=== PATIENT | female | born 1950 | race Caucasian/White ===

== ENCOUNTER → 2020-04-20 12:19 | Outpatient (CLI) | payer MEDICARE, SELFPAY ==
--- NOTE | ~2020-04-20 | MR_ITS ---
EXAMINATION: MR lumbar spine wo con DATE: 04/20/2020 12:53 INDICATION: Right-sided sciatica. Low back pain. TECHNIQUE: Magnetic resonance imaging (MRI) of the lumbar spine was performed without intravenous con trast. Sequences included sagittal T2-weighted FSE, sagittal T2-weighted FS FSE, sagittal T1-weighted FSE, and axial T2-weighted FSE. COMPARISON: Chest CT 11/04/19, CT abdomen and pelvis 09/25/2015 FINDINGS: There are hypoplastic ribs at L1. There is 3 mm retrolisthesis of L2 on L3. Vertebral body heights are normal. There is moderately decreased disc height at L2-L3 and L5-S1. The distal spinal c ord signal intensity is normal. The conus medullaris is at L2. The following disc levels are specific ally discussed: L1-L2: The disc does not extend beyond the endplate margin. There is mild bilateral facet joint osteo arthritis. There is no neural foraminal stenosis. There is no central canal stenosis. L2-L3: The disc is bulging. There is mild bilateral facet joint osteoarthritis. There is moderate rig ht and mild left neural foraminal stenosis. There is mild central canal stenosis. L3-L4: The disc is bulging. There is mild bilateral facet joint osteoarthritis. There is mild bilater al neural foraminal stenosis. There is mild central canal stenosis. L4-L5: The disc is bulging and has an annular fissure. There is severe right and moderate left facet joint osteoarthritis. There is mild bilateral neural foraminal stenosis. There is mild central canal stenosis. L5-S1: The disc is bulging and has an annular fissure. There is severe bilateral facet joint osteoart hritis. There is mild right and moderate left neural foraminal stenosis. There is mild central canal stenosis. IMPRESSION: 1. Moderate lumbar spondylosis. Reviewed, dictated and finalized at location A.
== END ==
PROVIDERS: PCP Internal Medicine; Visit Provider Orthopaedic Surgery
DX: M54.41 Lumbago with sciatica, right side (principal); M47.816 Spondylosis without myelopathy or radiculopathy, lumbar region
CPT/HCPCS: 72148

== ENCOUNTER → 2020-05-20 13:11 | Outpatient (CLI) | payer MEDICARE, SELFPAY ==
--- NOTE | ~2020-05-20 | MM_ITS ---
EXAMINATION: MM screening [facility] BI w kaela HISTORY: Screening TECHNIQUE: Craniocaudal and mediolateral oblique 3-D tomosynthesis images were obtained and synthetic 2-D images were generated. CAD analysis was submitted and interpreted. COMPARISON: Comparison to multiple prior studies sequentially, with oldest reviewed study dated 01/2014. BREAST PARENCHYMAL COMPOSITION: There are scattered areas of fibroglandular density. FINDINGS: There is no evidence of suspicious mass, calcification, or architectural distortion to sugg est malignancy in either breast. There has been no suspicious interval change. IMPRESSION: 1. No mammographic evidence of malignancy. 2. Recommend routine screening mammography in one year. BI-RADS Category 1: Negative Reviewed, dictated and finalized at location D.
--- NOTE | ~2020-05-20 | DEXA_ITS ---
Bone Density Report Name: Gonsalo Seo Age: 69 Sex: Female Ethnicity: White Date of : 1950 Indication: postmenopausal; screening for osteoporosis; hysterectomy; Referring Provider: Cali, Rex Adams Study: Bone densitometry was performed. Exam Date: May 20, 2020 Accession number: [id number] Bone Density: Region BMD T-score Z-score Classification AP Spine (L1-L4) 1.104 0.5 2.5 Normal Femoral Neck (Left) 0.713 -1.2 0.4 Osteopenia Total Hip (Left) 0.930 -0.1 1.3 Normal Femoral Neck (Right) 0.699 -1.4 0.3 Osteopenia Total Hip (Right) 0.920 -0.2 1.2 Normal Total Hip Mean 0.925 -0.2 1.3 Normal World Health Organization criteria for BMD impression classify patients as: Normal (T-score at or above -1.0), Osteopenia (T-score between -1.0 and -2.5), or Osteoporosis (T-score at or below -2.5). 10-year Fracture Risk(1): Major Osteoporotic Fracture 11% Hip Fracture 1.4% Reported Risk Factors: [place] (), Neck BMD=0.699, BMI=30.6, alcohol use (1) FRAX(R) Version 3.08. Fracture probability calculated for an untreated patient. Fracture probability may be lower if the patient has received treatment. Previous Exams: Region Exam Age BMD T-score BMD Change BMD Change Date g/cm2 vs Baseline vs Previous AP Spine(L1-L4) 05/20/2020 69 1.104 0.5 -0.053* 0.008 11/30/2016 66 1.095 0.4 -0.062* -0.027* 07/30/2013 62 1.122 0.7 -0.035* 0.023* 02/25/2011 60 1.099 0.5 -0.058* -0.037* 01/30/2008 57 1.136 0.8 -0.021 -0.021 09/21/2005 54 1.157 1.0 Total Hip(Left) 05/20/2020 69 0.930 -0.1 -0.125* -0.051* 11/30/2016 66 0.981 0.3 -0.073* 0.089* 07/30/2013 62 0.893 -0.4 -0.162* -0.034* 02/25/2011 60 0.927 -0.1 -0.128* -0.026 01/30/2008 57 0.953 0.1 -0.102* 0.203 09/21/2005 54 0.750 -1.6 -0.305 -0.305 09/21/2005 54 1.055 0.9 Total Hip(Right) 05/20/2020 69 0.920 -0.2 -0.089* -0.068* 11/30/2016 66 0.988 0.4 -0.021 0.056* 07/30/2013 62 0.931 -0.1 -0.077* 0.015 02/25/2011 60 0.916 -0.2 -0.092* -0.048* 01/30/2008 57 0.964 0.2 -0.044* -0.044* 09/21/2005 54 1.008 0.5 *Denotes significance at 95% confidence level, LSC for AP Spine = 0.022 g/cm2, LSC for Total Hip = 0.027 g/cm2 Clinical Information P
== END ==
PROVIDERS: PCP Internal Medicine; Visit Provider Internal Medicine
DX: Z12.31 Encounter for screening mammogram for malignant neoplasm of breast (principal); Z78.0 Asymptomatic menopausal state; M85.89 Other specified disorders of bone density and structure, multiple sites
CPT/HCPCS: 77063; 77067; 77080

== ENCOUNTER → 2021-04-06 12:46 | Outpatient (CLI) | payer MEDICARE, SELFPAY ==
--- NOTE | ~2021-04-06 | CT_ITS ---
EXAMINATION: CT lung screening DATE: 04/06/2021 13:12 INDICATION: Personal history of tobacco dependence, prior smoker with 40 pack year history TECHNIQUE: Computed tomography (CT) of the chest was performed without intravenous contrast. The dose -length product (DLP) was 172.45 mGy-cm. Automated exposure control and iterative reconstruction tech [employer] were employed. COMPARISON: 11/04/2019 FINDINGS: Stable nodules of the right upper lobe measure up to 5 mm. No new or suspicious pulmonary n odule is identified. The lungs are free of focal airspace opacities. There is no pleural effusion or pneumothorax. No pathologically enlarged thoracic lymph nodes are identified. The heart size is rajiv l. There is calcified coronary artery atherosclerosis. There is mild thoracic spondylosis. IMPRESSION: 1. Lung-RADS category 2: Benign appearance or behavior. Continue annual screening with noncontrast lo w-dose chest CT in 12 months. Reviewed, dictated and finalized at location A. IMPRESSION: 1. Lung-RADS category 2: Benign appearance or behavior. Continue annual screeni ng with noncontrast low-dose chest CT in 12 months.
== END ==
PROVIDERS: Visit Provider Internal Medicine
DX: F17.210 Nicotine dependence, cigarettes, uncomplicated (principal)
CPT/HCPCS: 71271

== ENCOUNTER → 2021-06-01 11:20 | Outpatient (CLI) | payer MEDICARE, SELFPAY ==
--- NOTE | ~2021-06-01 | MM_ITS ---
EXAMINATION: MM screening [facility] BI w kaela HISTORY: Screening mammogram TECHNIQUE: Craniocaudal and mediolateral oblique 3-D tomosynthesis images were obtained and synthetic 2-D images were generated. CAD analysis was submitted and interpreted. COMPARISON: 05/20/2020, 04/30/2019, 03/04/2018 BREAST PARENCHYMAL COMPOSITION: The breasts are almost entirely fatty. FINDINGS: There is no evidence of suspicious mass, calcification, or architectural distortion to sugg est malignancy in either breast. There has been no suspicious interval change. IMPRESSION: 1. No mammographic evidence of malignancy. 2. Recommend routine screening mammography in one year. BI-RADS Category 1: Negative Reviewed, dictated and finalized at location A.
== END ==
PROVIDERS: PCP Internal Medicine; Visit Provider Internal Medicine
DX: Z12.31 Encounter for screening mammogram for malignant neoplasm of breast (principal)
CPT/HCPCS: 77063; 77067

== ENCOUNTER → 2022-02-09 15:25 | Outpatient (CLI) | payer MEDICARE, SELFPAY ==
--- NOTE | ~2022-02-09 | MR_ITS ---
EXAMINATION: MR lumbar spine wo con DATE: 02/09/2022 16:22 INDICATION: Lumbar disc disease with radiculopathy. TECHNIQUE: Magnetic resonance imaging (MRI) of the lumbar spine was performed without intravenous con trast. Sequences included sagittal T2-weighted FSE, sagittal T2-weighted FS FSE, sagittal T1-weighted FSE, and axial T2-weighted FSE. COMPARISON: Lumbar spine MRI 04/20/2020 FINDINGS: There are hypoplastic ribs at L1. There is 3 degrees levocurvature of lumbar spine. There i s 3 mm retrolisthesis of L2 on L3. There is severely decreased disc height at L2-L3 and L5-S1 with en dplate remodeling. There is mildly decreased disc height at L3-L4. The distal spinal cord signal inte nsity is normal. The conus medullaris is at L1-L2. The following disc levels are specifically discuss ed: L1-L2: The disc is bulging. There is mild bilateral facet joint osteoarthritis. There is mild bilater al neural foraminal stenosis. There is mild central canal stenosis. L2-L3: The disc is bulging and has an annular fissure. There is mild bilateral facet joint osteoarthr itis. There is moderate right and mild left neural foraminal stenosis. There is mild central canal st enosis. L3-L4: The disc is bulging. There is moderate bilateral facet joint osteoarthritis. There is mild alicia ateral neural foraminal stenosis. There is mild central canal stenosis. L4-L5: The disc is bulging and has an annular fissure. There is severe bilateral facet joint osteoart hritis. There is mild bilateral neural foraminal stenosis. There is mild central canal stenosis. L5-S1: The disc is bulging and has an annular fissure. There is severe bilateral facet joint osteoart hritis. There is mild right and moderate left neural foraminal stenosis. There is mild central canal stenosis. IMPRESSION: 1. Severe lumbar spondylosis, slightly worsened from 04/20/2020. Reviewed, dictated and finalized at location A.
--- NOTE | ~2022-02-09 | XR_ITS ---
EXAMINATION: XR hip BI wo pelvis INDICATION: Bilateral hip pain TECHNIQUE: Two views of each hip are obtained. COMPARISON: None available FINDINGS: Bone alignment is normal. There is no fracture. There is mild osteoarthritis of the hips. T he soft tissues are unremarkable. IMPRESSION: 1. Mild osteoarthritis of the hips. Reviewed, dictated and finalized at location F.
== END ==
PROVIDERS: PCP Internal Medicine; Visit Provider Internal Medicine
DX: M25.551 Pain in right hip (principal); M25.552 Pain in left hip; M51.16 Intervertebral disc disorders with radiculopathy, lumbar region; M47.816 Spondylosis without myelopathy or radiculopathy, lumbar region; M16.0 Bilateral primary osteoarthritis of hip
CPT/HCPCS: 72148; 73521

== ENCOUNTER → 2022-04-26 13:47 | Outpatient (CLI) | payer MEDICARE, SELFPAY ==
--- NOTE | ~2022-04-26 | CT_ITS ---
EXAMINATION: CT lung screening DATE: 04/26/2022 14:09 INDICATION: Personal history of tobacco dependence. Lung cancer screening. TECHNIQUE: Computed tomography (CT) of the chest was performed without intravenous contrast. The dose -length product was 148.06 mGy-cm. Automated exposure control and iterative reconstruction technique were employed. COMPARISON: Comparison to multiple prior studies sequentially, with oldest reviewed study dated 04/2018. FINDINGS: Stable right upper lobe nodules, largest being groundglass nodule measuring 5 mm, axial taurus ge 41. No endobronchial lesions. No pneumothorax. No focal airspace consolidation. Heart size normal. No significant pleural or pericardial effusion. The upper abdomen is unremarkable. Mild thoracic spo ndylosis. No acute osseous abnormality. IMPRESSION: 1. Lung-RADS category 2: Benign appearance or behavior. Continue annual screening with noncontrast lo w-dose chest CT in 12 months. Reviewed, dictated and finalized at location A. IMPRESSION: 1. Lung-RADS category 2: Benign appearance or behavior. Continue annual screeni ng with noncontrast low-dose chest CT in 12 months.
== END ==
PROVIDERS: PCP Internal Medicine; Visit Provider Internal Medicine
DX: Z12.2 Encounter for screening for malignant neoplasm of respiratory organs (principal); F17.210 Nicotine dependence, cigarettes, uncomplicated
CPT/HCPCS: 71271

== ENCOUNTER → 2022-06-02 13:19 | Outpatient (CLI) | payer MEDICARE, SELFPAY ==
--- NOTE | ~2022-06-02 | MM_ITS ---
EXAMINATION: MM screening [facility] BI w kaela HISTORY: Screening mammogram TECHNIQUE: Craniocaudal and mediolateral oblique 3-D tomosynthesis images were obtained and synthetic 2-D images were generated. CAD analysis was submitted and interpreted. COMPARISON: 06/01/2021, 05/20/2020, 04/30/2019 bilateral screening mammogram examinations BREAST PARENCHYMAL COMPOSITION: The breasts are almost entirely fatty. FINDINGS: There is no evidence of suspicious mass, calcification, or architectural distortion to sugg est malignancy in either breast. There has been no suspicious interval change. IMPRESSION: 1. No mammographic evidence of malignancy. 2. Recommend routine screening mammography in one year. BI-RADS Category 1: Negative Reviewed, dictated and finalized at location A.
== END ==
PROVIDERS: PCP Internal Medicine
DX: Z12.31 Encounter for screening mammogram for malignant neoplasm of breast (principal)
CPT/HCPCS: 77063; 77067

== ENCOUNTER 2022-08-30 10:47 | Outpatient (CLI) | payer MEDICARE, SELFPAY ==
--- NOTE | ~2022-08-30 | US_ITS ---
EXAMINATION: US soft tissue groin RT DATE: 08/30/2022 11:59 INDICATION: Right groin pain TECHNIQUE: Multiple grayscale and Doppler ultrasound images of the region of concern at the right kaitlin in were obtained. COMPARISON: None FINDINGS/IMPRESSION: Normal study. No evident inguinal hernia, pathologically enlarged lymphadenopathy or other abnormal m asses or fluid collections identified at the right inguinal region of concern. Reviewed, dictated and finalized at location B. RT LOADER
--- NOTE | ~2022-08-30 | DEXA_ITS ---
Bone Density Report Name: MONTSERRAT PERRY Age: 71 Sex: Female Ethnicity: White Date of : 1950 Indication: postmenopausal; screening for osteoporosis; prior fracture; hysterectomy; Referring Provider: ESTEPHANIE NOLAND Study: Bone densitometry was performed. Exam Date: August 30, 2022 Accession number: [id number] Bone Density: Region BMD T-score Z-score Classification AP Spine (L1, L4) 1.021 -0.1 1.9 Normal Femoral Neck (Left) 0.724 -1.1 0.7 Osteopenia Total Hip (Left) 0.910 -0.3 1.2 Normal Femoral Neck (Right) 0.665 -1.7 0.1 Osteopenia Total Hip (Right) 0.891 -0.4 1.1 Normal Total Hip Mean 0.901 -0.4 1.2 Normal World Health Organization criteria for BMD impression classify patients as: Normal (T-score at or above -1.0), Osteopenia (T-score between -1.0 and -2.5), or Osteoporosis (T-score at or below -2.5). 10-year Fracture Risk(1): Major Osteoporotic Fracture 19% Hip Fracture 3.4% Reported Risk Factors: [place] (), Neck BMD=0.665, BMI=31.2, previous fracture, alcohol use (1) FRAX(R) Version 3.08. Fracture probability calculated for an untreated patient. Fracture probability may be lower if the patient has received treatment. Previous Exams: Region Exam Age BMD T-score BMD Change BMD Change Date g/cm2 vs Baseline vs Previous AP Spine(L1, L4) 08/30/2022 71 1.021 -0.1 -0.164 -0.067* 05/20/2020 69 1.088 0.5 -0.096 0.005 11/30/2016 66 1.083 0.4 -0.101 -0.040* 07/30/2013 62 1.124 0.8 -0.061 0.019 02/25/2011 60 1.104 0.6 -0.080 -0.020 01/30/2008 57 1.124 0.8 -0.060 -0.013 09/21/2005 54 1.137 0.9 -0.047 -0.047 04/25/2003 52 1.184 1.3 Total Hip(Left) 08/30/2022 71 0.910 -0.3 -0.032 -0.021 05/20/2020 69 0.930 -0.1 -0.011 -0.051* 11/30/2016 66 0.981 0.3 0.040 0.089* 07/30/2013 62 0.893 -0.4 -0.049 -0.034* 02/25/2011 60 0.927 -0.1 -0.014 -0.026 01/30/2008 57 0.953 0.1 0.012 0.203 09/21/2005 54 0.750 -1.6 -0.191 -0.305 09/21/2005 54 1.055 0.9 0.113 0.113 04/25/2003 52 0.941 0.0 Total Hip(Right) 08/30/2022 71 0.891 -0.4 -0.050 -0.029* 05/20/2020 69 0.920 -0.2 -0.022 -0.068* 11/30/2016 66 0.988 0.4 0.046 0.056* 07/30/2013 62 0.931 -0.1 -0.010 0.015 02/25/2011 60 0.916
== END 2022-08-30 10:48 ==
DX: M79.89 Other specified soft tissue disorders (principal); M85.852 Other specified disorders of bone density and structure, left thigh; M85.851 Other specified disorders of bone density and structure, right thigh
CPT/HCPCS: 76882; 77080

== ENCOUNTER → 2023-04-27 12:47 | Outpatient (CLI) | payer MEDICARE, SELFPAY ==
--- NOTE | ~2023-04-27 | CT_ITS ---
EXAMINATION:CT lung screening DATE: 04/27/2023 13:08 INDICATION: Personal history of nicotine dependence. 40 pack year history. TECHNIQUE: Computed tomography (CT) of the chest was performed without intravenous contrast. Automate d exposure control and iterative reconstruction technique were employed. The dose-length product (DLP ) was 151.32 mGy-cm. COMPARISON: Chest CT 04/26/2022 FINDINGS: A calcified left lung nodule is consistent with old granulomatous disease. No pleural effus ion. Aortic atherosclerosis is noted. The heart size is normal. There are coronary artery calcificati ons. No pericardial effusion. There is diffuse hepatic steatosis. There is severe upper thoracic spon dylosis. IMPRESSION: 1. Lung-RADS category 1: Negative. Continue annual screening with noncontrast low-dose chest CT in 12 months. Reviewed, dictated and finalized at location E. IMPRESSION: 1. Lung-RADS category 1: Negative. Continue annual screening with noncontrast l ow-dose chest CT in 12 months.
== END ==
PROVIDERS: PCP Family Medicine
DX: Z12.2 Encounter for screening for malignant neoplasm of respiratory organs (principal); Z87.891 Personal history of nicotine dependence
CPT/HCPCS: 71271

== ENCOUNTER → 2023-06-08 13:19 | Outpatient (CLI) | payer MEDICARE, SELFPAY ==
--- NOTE | ~2023-06-08 | MM_ITS ---
EXAMINATION: MM screening [facility] BI w kaela HISTORY: Screening mammogram TECHNIQUE: Craniocaudal and mediolateral oblique 3-D tomosynthesis images were obtained and synthetic 2-D images were generated. CAD analysis was submitted and interpreted. COMPARISON: 06/02/2022, 06/01/2021 bilateral screening mammogram examinations BREAST PARENCHYMAL COMPOSITION: The breasts are almost entirely fatty. FINDINGS: There is no evidence of suspicious mass, calcification, or architectural distortion to sugg est malignancy in either breast. There has been no suspicious interval change. IMPRESSION: 1. No mammographic evidence of malignancy. 2. Recommend routine screening mammography in one year. BI-RADS Category 1: Negative Reviewed, dictated and finalized at location A.
== END ==
PROVIDERS: PCP Family Medicine
DX: Z12.31 Encounter for screening mammogram for malignant neoplasm of breast (principal)
CPT/HCPCS: 77063; 77067

== ENCOUNTER 2024-05-02 12:49 | Outpatient (CLI) | payer MEDICARE, SELFPAY ==
--- NOTE | ~2024-05-02 | CT_ITS ---
CT Scan of the Chest without Contrast: Clinical Indication: Lung cancer screening, nicotine dependence Technique: Contiguous sections were acquired throughout the chest without intravenous contrast. Dose reduction technique was used on this scan by utilizing automated exposure control and iterative recon struction technique. The dose-length product (DLP) was 120.85 mGy-cm. COMPARISON: 04/27/2023 Findings: There is no evidence of any significant mediastinal, hilar or axillary lymphadenopathy. Coronary [place] calcifications are present. There is no evidence of pleural or pericardial effusion. Stable groundglass peripheral nodule in the right upper lobe. Images through the upper abdomen reveal no abnormalities. Impression: Lung RADS 2: Benign appearance. 12 month follow-up screening CT advised. Reviewed, dictated and finalized at location . Impression: Lung RADS 2: Benign appearance. 12 month follow-up screening CT advised.
== END 2024-05-02 12:50 ==
LOC: MICIMG 12:51
PROVIDERS: PCP Hospitalist; Visit Provider Hospitalist
DX: Z12.2 Encounter for screening for malignant neoplasm of respiratory organs (principal); Z87.891 Personal history of nicotine dependence
CPT/HCPCS: 71271

== ENCOUNTER 2024-07-23 14:04 | Outpatient (CLI) | payer MEDICARE, SELFPAY ==
--- NOTE | ~2024-07-23 | MM_ITS ---
EXAMINATION: MM screening [facility] BI w kaela HISTORY: Screening TECHNIQUE: Craniocaudal and mediolateral oblique 3-D tomosynthesis images were obtained and synthetic 2-D images were generated. CAD analysis was submitted and interpreted. COMPARISON: Comparison to multiple prior studies sequentially, with oldest reviewed study dated 10/2017. BREAST PARENCHYMAL COMPOSITION: Not dense: There are scattered areas of fibroglandular density. FINDINGS: There is no evidence of suspicious mass, calcification, or architectural distortion to sugg est malignancy in either breast. There has been no suspicious interval change. IMPRESSION: 1. No mammographic evidence of malignancy. 2. Recommend routine screening mammography in one year. BI-RADS Category 1: Negative Reviewed, dictated and finalized at location B.
== END 2024-07-23 14:05 | disposition home or self-care (01) ==
PROVIDERS: PCP Hospitalist; Visit Provider Hospitalist
DX: Z12.31 Encounter for screening mammogram for malignant neoplasm of breast (principal)
CPT/HCPCS: 77063; 77067

== ENCOUNTER 2025-05-06 14:00 | Outpatient (CLI) | payer MEDICARE, SELFPAY ==
--- NOTE | ~2025-05-06 | CT_ITS ---
EXAMINATION: CT lung screening DATE: 05/06/2025 14:20 INDICATION: pers hx of nitotine dependence TECHNIQUE: Computed tomography (CT) of the chest was performed without intravenous contrast. Addition al 3D reconstructions utilizing coronal maximum intensity projection (MIP) were performed. Automated exposure control and iterative reconstruction technique were employed. The dose-length product was 10 8.20 mGy-cm. COMPARISON: 05/02/2024 and 04/27/2023 FINDINGS: Very small calcified nodule at the basilar left lower lobe consistent with old granulomatous disease. No significant change in approximately 6 mm groundglass nodule at the peripheral left upper lobe. No new or enlarging pulmonary nodules. No pneumonia, pulmonary edema or pleural effusion. Heart size is normal. Small amount of atherosclerotic coronary artery calcific lesion. Aortic valve calcific locat ion. No pericardial effusion. Thoracic aorta is normal in caliber. No pathologically enlarged thoraci c lymphadenopathy. Visualized upper abdomen is unremarkable. Severe spondylosis at T2-T3. Otherwise m ild thoracic spondylosis. Couple unchanged sclerotic likely bone islands at T7 and T8. IMPRESSION: 1. . Lung-RADS category 2: Benign appearance or behavior. Continue annual screening with noncontrast low-dose chest CT in 12 months. Reviewed, dictated and finalized at location A. IMPRESSION: 1. . Lung-RADS category 2: Benign appearance or behavior. Continue annual scree june with noncontrast low-dose chest CT in 12 months.
== END 2025-05-06 14:01 | disposition home or self-care (01) ==
LOC: MICIMG 14:01
PROVIDERS: PCP Hospitalist; Visit Provider Hospitalist
DX: Z12.2 Encounter for screening for malignant neoplasm of respiratory organs (principal); Z87.891 Personal history of nicotine dependence
CPT/HCPCS: 71271